=== PATIENT | female | born 1990 | race Caucasian/White ===

== ENCOUNTER 2019-12-03 07:20 | Inpatient (IN) | payer OTHER, BC ==
[2019-12-03] MEDS ORDERED: Buffered Lidocaine 1% SYRIN* 1 ML/SYRINGE INTRADERM ONE (13:55)
[2019-12-03] MEDS ORDERED: Lactated Ringers 1000 ML Bag* 1,000 ML IV ONE ×2 (13:55→19:39)
[2019-12-03] MEDS ORDERED: Morphine 10 MG/ML VIAL (1 ml) IV ONE (13:58)
[2019-12-03] MEDS ORDERED: Promethazine INJ(RESTRICTED)* 25 MG/ML 1 ML VIAL IM ONE (14:00)
[2019-12-03] MEDS ORDERED: Lactated Ringers 1000 ML Bag* 1,000 ML IV SCH ×2 (14:00→20:00)
[2019-12-03] MEDS ORDERED: Morphine 10 MG/ML VIAL (1 ml) IM ONE (14:00)
--- NOTE | 2019-12-03 14:08 | HP ---
General Information - Reason for Visit at 39 6/7 weeks in labor. - General Information Maternal Age: 29 Grav: 1 Para: 0 SAB: 0 IEA: 0 Estimated Due Date: 12/04/19 Determined By: Early Ultrasound Gestational Age in Weeks/Days: 39 6/7 Maternal Blood Type and Rh: O Positive - Results this Serology/RPR Result: Non-Reactive Rubella Result: Immune HBsAg Result: Negative HIV Result: Negative GBS Culture Result: Negative Past Medical History Delivery History: See Records Pertinent Past Medical History: See Records Past Medical History Comment: None Pertinent Past Surgical History: See Records Past Surgical History Comment: Left foot cystectomy Pertinent Family History: See Records - Antepartal Records Antepartal Records: Reviewed, Uncomplicated Review of Systems Constitutional: Uncomfortable CV Complaint: No Respiratory: Shortness of Breath: No Gastrointestinal: No Nausea/Vomiting, Normal Bowel Movement Genitourinary: No Dysuria, No Bleeding, No Leaking Fluid Musculoskeletal: No Epigastric Pain, Contractions Neurological: No Headache, No Visual Changes Movement: Normal Exam Allergies/Adverse Reactions: Allergies shellfish derived Allergy (Severe, Verified 12/03/19 07:43) Hives/Diff.Breathing/Itching Temp 97.8 BP 121/70 P 93 RR 16 POx 98% RA - Measurements Height: 5 ft 10 in Weight: 185 lb Weight in lbs: [id number] Body Mass Index (BMI): 26.5 Pre- Weight: 155 lb Weight Gained This : 30 lbs and 0 ozs - Exam Breast: Breast Exam Deferred CVA: No CVA Tenderness Extremities: No Edema Heart: Normal Rhythm/Heart Sounds HEENT: No Significant Findings Lungs: Clear Bilaterally Rectal: Rectal Exam Deferred Reflexes: DTR 2+ Thyroid: No Thyromegaly - Abdominal Exam Abdomen Exam: Non-Tender, Fundal Height Consistent with Dates - Ultrasound/Biophysical Profile Ultrasound Status: Not Done Biophysical Profile: Normal Reactive NST Targeted Exam Findings See L&D Outpatient Visit Provider Note for Findings: N/A Cervical Exam: 4cm Effacement: 90% Station: -1 Presenting Part: Vertex Membrane Status: Intact Bleeding/Discharge: None EFM Findings - External Monitor Findings Baseline Heart Rate: 130 External Monitor Findings: Accelerations Present Contractions: Regular, Moderate, < 45 Seconds Assessment/Plan - Plan Plan: Admit - Anticipate Vaginal Delivery - Date/Time of Admission Date of Admission: 12/03/19 Time of Admission: 14:10
[2019-12-03 14:38] LABS: ABS Monocytes 0.4 10^3/ul (0-0.8); ABS Neutrophils 11.7 10^3/ul (1.5-7.7); Eosinophil % 0.1 %; Hematocrit 33 % (35-47); Hemoglobin 11.2 g/dL (12.0-16.0); Lymphocyte % 7.8 %; Mean Corpuscular HGB Conc 34 g/dL (31-36); Mean Corpuscular Hemoglobin 30 pg (27-31); Mean Corpuscular Volume 86 fL (80-97); Mean Platelet Volume 10.4 fL (7.4-10.4); Platelet Count 173 10^3/uL (150-450); Red Blood Count 3.79 10^6 /uL (3.70-4.87); Red Cell Distribution Width 14 % (10-15); White Blood Count 13.1 10^3/uL (3.5-10.8)
[2019-12-03 15:00] LABS: Urine Benzodiazepine Screen None Detected (None Detect); Urine Opiates Screen None Detected (None Detect)
[2019-12-03] MEDS ORDERED: OBEPIDURAL* 250 ML EPIDURAL ONE (17:44)
[2019-12-03] MEDS ORDERED: Bupivacaine 0.25% SDV PF* 10 ML VIAL INJ ONE (19:13)
[2019-12-03] MEDS ORDERED: Phenylephrine 40 MCG/ML SYRINGE IV PUSH PRN ×2 (19:39)
[2019-12-03] MEDS ORDERED: Famotidine TAB* 20 MG PO PRN (19:39)
[2019-12-03] MEDS ORDERED: Sodium Citrate/Citric Acid* 15 ML UDC PO PRN (19:39)
[2019-12-03] MEDS ORDERED: Lactated Ringers 1000 ML Bag* 500 ML IV PRN ×2 (19:39)
[2019-12-04] MEDS ORDERED: Oxytocin in LR* 20 UNITS/1,000 ML BAG IVPB ONE (01:19)
[2019-12-04] MEDS ORDERED: Oxytocin in LR* 20 UNITS/1,000 ML BAG IVPB SCH (06:00)
[2019-12-04] MEDS ORDERED: Ibuprofen TAB* 600 MG ONE (06:25)
[2019-12-04 06:56] LABS: ABS Lymphocytes 0.7 10^3/ul (1.0-4.8); ABS Monocytes 1.1 10^3/ul (0-0.8); ABS Neutrophils 14.9 10^3/ul (1.5-7.7); Hematocrit 23 % (35-47); Hemoglobin 7.9 g/dL (12.0-16.0); Lymphocyte % 4.4 %; Mean Corpuscular HGB Conc 34 g/dL (31-36); Mean Corpuscular Hemoglobin 30 pg (27-31); Mean Corpuscular Volume 86 fL (80-97); Mean Platelet Volume 10.3 fL (7.4-10.4); Platelet Count 166 10^3/uL (150-450); Red Blood Count 2.67 10^6 /uL (3.70-4.87); Red Cell Distribution Width 14 % (10-15); White Blood Count 16.8 10^3/uL (3.5-10.8)
[2019-12-04 07:06] LABS: Activated Partial Thrombo Time 27.4 seconds (26.0-38.0); INR 1.07 (0.82-1.09)
[2019-12-04] MEDS ORDERED: Glycerin ADULT SUPP PR PRN (07:22)
[2019-12-04 07:34] LABS: Fibrinogen 357.2 mg/dL (110.8-404.3)
--- NOTE | 2019-12-04 07:35 | PROCNOTE ---
[facility] OB: Delivery Note - Delivery A Date of : 12/04/19 Time of : 05:51 Sex: Male Weight at : 9 lb 11 oz Score 1 Minute: 9 Score 5 Minutes: 9 Gestational Age in Weeks and Days at Delivery: 40 Weeks and 0 Days Delivery Method: Spontaneous Vaginal Labor: Spontaneous Did Patient attempt ?: N/A, No Previous Amniotic Fluid: Clear Estimated Blood Loss: 300 Anesthesia/Analgesia: CEI for Labor Delivered By: Rafita Terry - Nursery Level of Nursery: Regular/Bedside - Perineum Perineal Injury: 2nd Degree, 3rd Degree Extension Perineal Injury Comment: 3rd degree , lateral 2nd degree x 2 Perineal Repair: By Delivering Practioner - Events Delivery Events of Note: Pitocin During Labor, Protracted/Long Labor, Difficult Delivery, Supplemental O2 to Mother, Pushed > 3 Hours - Risk for Falls Delivered OB Patient- Risk for Falls: Low Hematocrit (<29), Other - Vasovagal episode, Other Risk for Falls: None Fall Risk: Patient is at High Risk for Falls
[2019-12-04] MEDS ORDERED: Lactated Ringers 1000 ML Bag* 1,000 ML IV SCH (08:00)
[2019-12-04] MEDS ORDERED: D5LR 1000 ML BAG* 1,000 ML IV SCH (08:00)
[2019-12-04 08:33] LABS: ABS Lymphocytes 0.7 10^3/ul (1.0-4.8); ABS Monocytes 1.2 10^3/ul (0-0.8); ABS Neutrophils 18.7 10^3/ul (1.5-7.7); Hematocrit 21 % (35-47); Hemoglobin 7.3 g/dL (12.0-16.0); Lymphocyte % 3.4 %; Mean Corpuscular HGB Conc 35 g/dL (31-36); Mean Corpuscular Hemoglobin 30 pg (27-31); Mean Corpuscular Volume 86 fL (80-97); Mean Platelet Volume 10.5 fL (7.4-10.4); Platelet Count 162 10^3/uL (150-450); Red Blood Count 2.46 10^6 /uL (3.70-4.87); Red Cell Distribution Width 14 % (10-15); White Blood Count 20.6 10^3/uL (3.5-10.8)
[2019-12-04 08:35] LABS: Urine Appearance Cloudy; Urine Bilirubin Negative (Negative); Urine Blood 3+ (Negative); Urine Color Yellow; Urine Glucose 1+(50 mg/dL) (Negative); Urine Ketones 1+ (Negative); Urine Nitrite Negative (Negative); Urine Protein 1+(30 mg/dL) (Negative); Urine Specific Gravity 1.016 (1.010-1.030); Urine Urobilinogen Negative (Negative)
[2019-12-04 08:41] LABS: Fibrinogen 326.1 mg/dL (110.8-404.3); INR 1.09 (0.82-1.09); Urine Bacteria Absent (Absent); Urine Red Blood Cell 3+(>10/hpf) (Absent); Urine Squamous Epithelial Cell Present (Absent); Urine Transitional Epithelial Present (Absent); Urine White Blood Cell 3+(>20/hpf) (Absent)
[2019-12-04] MEDS ORDERED: diPHENhydraMINE PO* 25 MG PO ONE (08:48)
[2019-12-04 08:51] LABS: Albumin 2.3 g/dL (3.2-5.2); Albumin/Globulin Ratio 1.2 (1-3); BUN/Creatinine Ratio 14.9 (8-20); Calcium 7.1 mg/dL (8.6-10.3); EGFR African American 93.1 (>60); Globulin 1.9 g/dL (2-4); Potassium 3.3 mmol/L (3.5-5.0); Total Bilirubin 0.4 mg/dL (0.2-1.0); Total Protein 4.2 g/dL (6.4-8.9)
[2019-12-04] MEDS: Acetaminophen TAB* 325 MG PO PRN (09:04)
[2019-12-04] MEDS: Docusate CAP* 100 MG PO SCH ×3 (09:04→22:14)
--- NOTE | 2019-12-04 11:52 | PN ---
Progress Note - Progress Note Date of Service: 12/04/19 Note: Pt delivered early this AM by overnight provider. H/H collected secondary to pt with hypotension and pallor. EBL for case was 300mL, there was no evidence of hemhorrhage at time of delivery , but pt did have a prolonged 2nd stage. Fundus firm and well below the U. Initially Hct was found to be 23 down from 33. On 2 hour interval repeat, Hct found to be 21. Pt gently examined and minimal vaginal bleeding, fundus firm and below the U, again no evidence of hemorrhage. No evidence of vaginal hematoma on exam either. Vital signs remains stable with mild hypotension, RRR, but pt is symptomatic with dizziness on sitting up and UOP has been minimal. Recommend transfusion to patient given symptomatic and Hgb < 8. Risks versus benefits of transfusion including adverse transfusion reaction and risk of infection carefully reviewed with patient and spouse. Both agree to proceed with transfusion of 2 U PRBC. Will premedicate with Benadryl 25mg and Tylenol. Repeat CBC at 4 hours s/p second unit of PRBC's. Continue to monitor vitals, UOP and bleeding closely. Jimmy Steel, DO [facility]
[2019-12-04] MEDS ORDERED: Lidocaine 1% INJ* 10 MG/ML 30 ML SDV ONE (17:17)
[2019-12-04] MEDS: Ibuprofen TAB* 600 MG PO PRN (18:45)
[2019-12-04] MEDS: Dibucaine 1% 28.35 GM TUBE PR PRN (18:45)
[2019-12-04] MEDS: Witch Hazel PAD* JAR TOPICAL PRN (18:45)
[2019-12-04 20:32] LABS: ABS Lymphocytes 1.6 10^3/ul (1.0-4.8); ABS Monocytes 1.5 10^3/ul (0-0.8); ABS Neutrophils 18.4 10^3/ul (1.5-7.7); Hematocrit 25 % (35-47); Hemoglobin 8.5 g/dL (12.0-16.0); Lymphocyte % 7.4 %; Mean Corpuscular HGB Conc 34 g/dL (31-36); Mean Corpuscular Hemoglobin 30 pg (27-31); Mean Corpuscular Volume 87 fL (80-97); Mean Platelet Volume 10.8 fL (7.4-10.4); Platelet Count 161 10^3/uL (150-450); Red Blood Count 2.86 10^6 /uL (3.70-4.87); Red Cell Distribution Width 14 % (10-15); White Blood Count 21.5 10^3/uL (3.5-10.8)
[2019-12-04] MEDS ORDERED: Methylergonovine INJ* 0.2 MG/ML 1ML AMP ONE (21:12)
[2019-12-05] MEDS: Ibuprofen TAB* 600 MG PO PRN ×4 (00:12→20:57)
[2019-12-05] MEDS: Acetaminophen TAB* 325 MG PO PRN ×4 (00:12→20:56)
[2019-12-05 06:39] LABS: ABS Basophils 0.1 10^3/ul (0-0.2); ABS Eosinophils 0.1 10^3/ul (0-0.6); ABS Monocytes 1.3 10^3/ul (0-0.8); ABS Neutrophils 15.4 10^3/ul (1.5-7.7); Eosinophil % 0.3 %; Hematocrit 23 % (35-47); Hemoglobin 8.1 g/dL (12.0-16.0); Lymphocyte % 10.6 %; Mean Corpuscular HGB Conc 36 g/dL (31-36); Mean Corpuscular Hemoglobin 31 pg (27-31); Mean Corpuscular Volume 87 fL (80-97); Mean Platelet Volume 10.1 fL (7.4-10.4); Platelet Count 132 10^3/uL (150-450); Red Blood Count 2.62 10^6 /uL (3.70-4.87); Red Cell Distribution Width 14 % (10-15); White Blood Count 18.8 10^3/uL (3.5-10.8)
[2019-12-05] MEDS: OBEPIDURAL* 250 ML EPIDURAL SCH (07:15)
[2019-12-05] MEDS: Docusate CAP* 100 MG PO SCH ×3 (08:09→20:56)
[2019-12-05] MEDS: Ferrous Gluconate TAB* 324 MG TAB PO SCH ×2 (08:09→20:56)
[2019-12-05] MEDS: Simethicone TAB* 80 MG TAB.CHEW PO SCH (08:32)
--- NOTE | 2019-12-05 09:13 | PTEDU ---
Patient Name: ODILON VILLA ODILON VILLA selected video: Follow Me Mum: [employer] to view on 12/05/2019 at 9:13:11 AM from [id number]
[2019-12-06] MEDS: Acetaminophen TAB* 325 MG PO PRN ×3 (00:39→11:05)
[2019-12-06 06:55] LABS: Hematocrit 22 % (35-47); Hemoglobin 7.6 g/dL (12.0-16.0); Mean Corpuscular HGB Conc 34 g/dL (31-36); Mean Corpuscular Hemoglobin 30 pg (27-31); Mean Corpuscular Volume 88 fL (80-97); Mean Platelet Volume 9.8 fL (7.4-10.4); Platelet Count 151 10^3/uL (150-450); Red Blood Count 2.53 10^6 /uL (3.70-4.87); Red Cell Distribution Width 14 % (10-15); White Blood Count 13.2 10^3/uL (3.5-10.8)
[2019-12-06] MEDS: Ibuprofen TAB* 600 MG PO PRN ×2 (06:57→13:40)
[2019-12-06 07:57] VITALS: BP 106/65
[2019-12-06] MEDS: Docusate CAP* 100 MG PO SCH ×2 (09:08→13:40)
[2019-12-06] MEDS: Ferrous Gluconate TAB* 324 MG TAB PO SCH (09:08)
--- NOTE | 2019-12-06 12:04 | PTEDU ---
Patient Name: ODILON VILLA ODILON VILLA selected video: Never Ever Shake a Baby to view on 12/06/2019 at 12:03:44 PM [id number]
[2019-12-06] MEDS: Witch Hazel PAD* JAR TOPICAL PRN (14:06)
[2019-12-06] MEDS: Dibucaine 1% 28.35 GM TUBE PR PRN (14:06)
--- NOTE | 2019-12-06 14:18 | PN ---
Progress Note - Progress Note Date of Service: 12/06/19 Note: Pt with severe anemia despite what was reported as average EBL. After transfusion, Hct improved, but as of this morning settled at 22. Pt reports feeling significantly improved compared to yesterday. Energy much improved, walking better. VS normal, afebrile. Pt pale, but speaking clearly and with good affect. Abd soft, nontender, fundus firm at U-2 A/P: PPD#2 feeling better. Would like to go home but still a little concerned about the unexplained blood loss. HELLP unlikely but hemolysis could cause the unexplained anemia. Will recheck one more set of labs to ensure everything is stable, then discharge.
[2019-12-06 14:36] LABS: Hematocrit 25 % (35-47); Hemoglobin 8.4 g/dL (12.0-16.0); Mean Corpuscular HGB Conc 34 g/dL (31-36); Mean Corpuscular Hemoglobin 30 pg (27-31); Mean Corpuscular Volume 88 fL (80-97); Mean Platelet Volume 9.5 fL (7.4-10.4); Platelet Count 192 10^3/uL (150-450); Red Cell Distribution Width 14 % (10-15)
[2019-12-06 14:51] LABS: Albumin 2.7 g/dL (3.2-5.2); Albumin/Globulin Ratio 1.1 (1-3); BUN/Creatinine Ratio 15.1 (8-20); Calcium 7.9 mg/dL (8.6-10.3); EGFR Non-African American 94.3 (>60); Globulin 2.5 g/dL (2-4); Total Bilirubin 0.2 mg/dL (0.2-1.0); Total Protein 5.2 g/dL (6.4-8.9); Uric Acid 3.5 mg/dL (2.3-6.6)
== END 2019-12-06 18:33 | disposition home or self-care (01) | DRG 768 ==
LOC: MCHOBOUT 07:20 → MCHOB 13:54
PROVIDERS: ADMIT Obstetrics & Gynecology; ATTEND Obstetrics & Gynecology
PROC: 10E0XZZ Delivery of Products of Conception, External Approach (ICD-10-PCS; principal; 2019-12-04)
PROC: 0DQR0ZZ Repair Anal Sphincter, Open Approach (ICD-10-PCS; 2019-12-04)
PROC: 30233N1 Transfusion of Nonautologous Red Blood Cells into Peripheral Vein, Percutaneous Approach (ICD-10-PCS; 2019-12-04)
DX: O70.20 Third degree perineal laceration during delivery, unspecified (principal); Z37.0 Single live birth; O72.1 Other immediate postpartum hemorrhage; O63.1 Prolonged second stage (of labor); O90.81 Anemia of the puerperium; D64.9 Anemia, unspecified; Z3A.40 40 weeks gestation of pregnancy
CPT/HCPCS: 36415; 80053; 80307; 81003; 81015; 83615; 84550; 85025; 85027; 85384; 85610; 85730; 86850; 86900; 86901; 86922; 87086; A9270-GY; G0480; J2210; J2270; J2550; J3490; P9040